=== PATIENT | male | born 1940 | race Caucasian/White ===

== ENCOUNTER 2020-11-14 12:01 | Observation (INO) | payer MEDICARE, SELFPAY ==
[2020-11-14] VITALS (28 sets, daily range): BP systolic 114–154; BP diastolic 67–97; PULSE 68–128; RESP 14–31; TEMP 36.3–36.4; O2SAT 95–99; BMI 21.7
--- NOTE | 2020-11-14 12:26 | DI.CT.S_ITS ---
PROCEDURE: CT STROKE INDICATIONS: left eye visual disturbance x 48 hours, now L UE weak TECHNIQUE: Noncontrast 4.5 mm thick angled axial sections acquired from the foramen magnum to the vertex, with coronal reformats. For radiation dose reduction, the following was used: automated exposure control, adjustment of mA and/or kV according to patient size. COMPARISON: None. FINDINGS: Image quality: Excellent. CSF spaces: Basal cisterns are patent. No extra-axial fluid collections. Ventricles are normal in size and shape. Brain: No midline shift. No intracranial masses or hemorrhage. Small area of hypodensity in the posterior right frontal lobe, (4/18). Skull and face: Calvarium and visualized facial bones are intact, without suspicious lesions. Sinuses: Mild mucosal thickening in the bilateral maxillary sinuses. Mild mucosal thickening in the left ethmoid air cell. Mastoids are clear. IMPRESSION: 1. No acute intracranial hemorrhage. 2. Small area of hypodensity in the posterior right frontal lobe. This is suspicious for subacute infarct. Comment: Findings were discussed with Carmella Villa at 1255 p.m. This study fulfills neurological imaging criteria for inclusion or exclusion of acute stroke therapies based on available published neurological imaging guidelines. Dictated by: Joni Gutierrez M.D. on 11/14/2020 at 12:51 Approved by: Joni Gutierrez M.D. on 11/14/2020 at 12:57
--- NOTE | 2020-11-14 12:29 | ED_ITS ---
HPI - Neuro Symptoms/Deficit General Chief Complaint: Neuro Symptoms/Deficit Stated Complaint: stroke, sent by Eye dr Time Seen by Provider: 11/14/20 12:29 Source: patient and other (Dr. García) Mode of arrival: Ambulatory Limitations: no limitations History of Present Illness HPI Narrative: 80-year-old male who states he lost vision in the upper quadrant of his left eye on the 12 of November, 2 days prior. Since then he has not had any additional symptoms until about an hour ago he had weakness of his left upper e xtremity that lasted for about 10 or 15 minutes and then resolved. Patient states he just can not lift it or move it properly. He denies any other symptoms. He has had headaches for several days but not currently. No nausea or vomiting. No other numbness tingling or weakness besides today's event. No other GI or urinary symptoms. Patient takes a Tylenol daily, blood pressure and cholesterol medication. He does not take any other blood thinners regularly. He lives in [facility]. On Anticoagulants: No Related Data Home Medications Medication Instructions Recorded Confirmed amlodipine 10 mg tablet 10 mg PO BEDTIME 11/14/20 11/14/20 Previous Rx's Medication Instructions Recorded aspirin 81 mg tablet,delayed 81 mg PO DAILY #30 tab 11/15/20 release atorvastatin 20 mg tablet (Lipitor) 80 mg PO BEDTIME #120 tab 11/15/20 clopidogrel 75 mg tablet 75 mg PO DAILY #30 tab 11/15/20 Allergies Allergy/AdvReac Type Severity Reaction Status Date / Time No Known Drug Allergies Allergy Verified 11/14/20 12:21 Review of Systems Review of Systems ROS Unobtainable: All systems reviewed & are unremarkable except as noted in HPI and below Hematologic/Lymphatic On Anticoagulants: No Patient History Medical History High cholesterol Hypertension Family History Sister CVA (cerebral vascular accident) Social History household members: spouse Smoking Status: Never smoker alcohol intake: never Smoking Status: Never smoker alcohol intake frequency: 0-2 drinks per day Substance Use Type: does not use Exam Narrative Exam Narrative: GEN: well nourished, well appearing male, alert and oriented x 3, patient appears to be in mild distress. HEENT: Atraumatic, pupils are equal round reactive to light, extraocular movements are intact, nares are clear, TMs are clear with no fluid, there is no conjunctival pallor. Throat is clear without any exudates, erythema, tonsillar enlargement or uvular deviation, no facial droop. HEART: Regular rate and rhythm without murmur, clicks, rubs. No carotid bruits, pulses are equal in upper and lower extremities LUNGS:Lungs clear to auscultation, no wheezes, rales, crackles, chest moves symmetrically ABD:bowel sounds normal, soft, non-tender, no guarding, rebound, rigidity, no masses noted, no hepatosplenomegaly :No CVA tenderness MSCL: Non-tender, no muscle atrophy, muscles strength 5/5 upper and lower extremities, full range of motion, normal gait NEURO:CN 2-12 intact, sensation normal, reflexes 2/4 upper and lower extremities. finger nose finger test normal, heel galeana test normal SKIN: No rash or skin changes. Initial Vital Signs Initial Vital Signs: Vital Signs Temperature 97.6 F 11/14/20 12:17 Pulse Rate 94 H 11/14/20 12:17 Respiratory Rate 18 11/14/20 12:17 Blood Pressure 153/85 H 11/14/20 12:17 Pulse Oximetry 99 11/14/20 12:17 Scores NIH Stroke Scale Level of Conciousness: Alert, keenly responsive Ask month/age: Answers both questions correctly. Open/close eyes, close hand: Performs both tasks correctly Best gaze horizontal: Normal Visual quinonez: Partial hemianopia Facial palsy: Normal symetrical movement Left arm drift: No drift for full 10 sec Right arm drift: No drift for full 10 sec Left leg drift: No drift for full 5 sec Right leg drift: No drift for full 5 sec Limb ataxia: Absent Sensory on face/arms/legs: Normal, no sensory loss Best language: No aphasia, normal Dysarthria: Normal Extinction or inattention: No abnormality Total NIH Stroke scale score: 1 Course Orders Ordered: Discontinued Medications Acetaminophen (Acetaminophen 325 Mg Tablet) 650 mg PO Q6HR PRN PRN Reason: Fever/Mild Pain (1-3) Amlodipine Besylate (Amlodipine 5 Mg Tablet) 10 mg PO BEDTIME TRUDY Aspirin (Aspirin 81 Mg Chew Tab) 324 mg PO NOW ONE Stop: 11/14/20 13:07 Last Admin: 11/14/20 13:21 Dose: 324 mg Documented by: SAMANTHA Aspirin (Aspirin Ec 81 Mg Tablet) 81 mg PO DAILY [facility] Last Admin: 11/15/20 09:10 Dose: 81 mg Documented by: DEMETRIUS Atorvastatin Calcium (Atorvastatin 20 Mg Tablet) 80 mg PO BEDTIME [facility] Last Admin: 11/14/20 20:26 Dose: 80 mg Documented by: GRANT Clopidogrel Bisulfate (Clopidogrel 75 Mg Tablet) 75 mg PO DAILY [facility] Last Admin: 11/15/20 09:10 Dose: 75 mg Documented by: DEMETRIUS Enoxaparin Sodium (Enoxaparin 40 Mg/0.4 Ml Syringe) 40 mg SUBCUT DAILY [facility] Last Admin: 11/15/20 09:10 Dose: 40 mg Documented by: DEMETRIUS Sodium Chloride (Normal Saline 0.9%) 1,000 mls @ 150 mls/hr IV CONT [facility] Last Infusion: 11/14/20 17:12 Dose: 0 mls/hr Documented by: Admin: 11/14/20 13:21 Dose: 150 mls/hr Documented by: SAMANTHA Naloxone HCl (Naloxone 0.4 Mg/Ml Vial) 0.2 mg IV Q2MIN PRN PRN Reason: Opiate Reversal Ondansetron HCl (Ondansetron 4 Mg/2 Ml Inj) 4 mg IV Q8HR PRN PRN Reason: Nausea And Vomiting Consultations Consultation #1: Telestroke, Dr. Dorsey. Recommends dual anti-platelet therapy with aspirin 81 mg a Plavix 150. Admission and further workup as his carotids do not seem to be a likely source of his stroke. Not candidate for tpa based on resolution of upper extremity symptoms and patient is far outside the window for his visual symptoms Consultation #2: Dr. Jackson, accepts for admission. Going for MRI. Vital Signs Vital signs: Vital Signs - 8 hr 11/14/20 12:17 11/14/20 13:17 11/14/20 13:30 Temperature 97.6 F Pulse Rate 94 H 85 82 Respiratory Rate 18 18 17 Blood Pressure 153/85 H 154/77 H Pulse Oximetry 99 97 11/14/20 13:45 11/14/20 14:00 11/14/20 14:01 Temperature Pulse Rate 80 107 H 92 H Respiratory Rate 14 31 H 27 H Blood Pressure 114/67 Pulse Oximetry 11/14/20 14:15 Temperature Pulse Rate 82 Respiratory Rate 17 Blood Pressure Pulse Oximetry MDM - Neuro Symptoms/Deficit Lab Data Result diagrams: 11/15/20 04:25 11/15/20 04:25 Labs: Lab Results 11/14/20 11/14/20 11/14/20 Range/Units 12:35 12:36 12:36 WBC 9.1 (4.5-11.0) X10^3/uL RBC 4.69 (4.5-5.9) X10^6/uL Hgb 14.6 (13.5-17.5) g/dL Hct 43.2 (41-53) % MCV 92.0 (80-100) fL MCH 31.1 (26-34) PG MCHC 33.8 (30-36) % RDW 13.5 (11.6-14.8) % Plt Count 295 (150-400) X10^3/uL Neut % (Auto) 68.3 (50-75) % Lymph % (Auto) 23.0 L (25-40) % [place] % (Auto) 6.2 (3-14) % Eos % (Auto) 1.7 L (2-4) % Baso % (Auto) 0.8 (0-2) % Neut # (Auto) 6200 (8888-5060) /uL Lymph # (Auto) 2100 (1725-2067) /uL [place] # (Auto) 600 (0-900) /uL Eos # (Auto) 200 (0-450) /uL Baso # (Auto) 100 (0-100) /uL ESR (0-15) MM/HR PT 11.9 (10.1-12.7) SECONDS INR 1.1 (0.9-1.3) APTT 34 (26.4-36.2) SECONDS Sodium (137-145) mmol/L Potassium (3.4-5.1) mmol/L Chloride (98-107) mmol/L Carbon Dioxide (22-32) mmol/L BUN (9-20) mg/dL Creatinine (0.66-1.25) mg/dL Estimated GFR (>60) mL/min BUN/Creatinine Ratio (6-22) Glucose (80-110) mg/dL Hemoglobin A1c (4.0-6.0) % Calcium (8.4-10.2) mg/dL Magnesium 2.1 (1.6-2.3) mg/dL Total Bilirubin (0.2-1.3) mg/dL AST (17-59) IU/L ALT (<50) IU/L Alkaline Phosphatase (38-126) U/L Total Creatine Kinase (55-170) U/L CK-MB (CK-2) CK-MB (CK-2) Rel Index Troponin I (0.01-0.034) ng/mL C-Reactive Protein (<1.0) mg/dL Total Protein (6.3-8.2) g/dL Albumin (3.5-5.0) g/dL Globulin (1.7-4.1) g/dL Albumin/Globulin Ratio (1.0-2.8) U Opiates 300ng/mL cut (Negative) Ur Oxycodone Screen (Negative) Urine Methadone Screen (Negative) Ur Barbiturates Screen (Negative) U Tricyclic Antidepress (Negative) Ur Phencyclidine Scrn (Negative) Ur Amphetamines Screen (Negative) U Methamphetamines Scrn (Negative) Ur MDMA Scrn (Ecstasy) (Negative) U Benzodiazepines Scrn (Negative) Urine Cocaine Screen (Negative) U Marijuana (THC) Screen (Negative) SARS-CoV-2 (PCR) (Negative) Blood Type Antibody Screen 11/14/20 11/14/20 11/14/20 Range/Units 12:36 12:36 12:36 WBC (4.5-11.0) X10^3/uL RBC (4.5-5.9) X10^6/uL Hgb (13.5-17.5) g/dL Hct (41-53) % MCV (80-100) fL MCH (26-34) PG MCHC (30-36) % RDW (11.6-14.8) % Plt Count (150-400) X10^3/uL Neut % (Auto) (50-75) % Lymph % (Auto) (25-40) % [place] % (Auto) (3-14) % Eos % (Auto) (2-4) % Baso % (Auto) (0-2) % Neut # (Auto) (8726-6417) /uL Lymph # (Auto) (0036-8932) /uL [place] # (Auto) (0-900) /uL Eos # (Auto) (0-450) /uL Baso # (Auto) (0-100) /uL ESR 10 (0-15) MM/HR PT (10.1-12.7) SECONDS INR (0.9-1.3) APTT (26.4-36.2) SECONDS Sodium 138 (137-145) mmol/L Potassium 4.1 (3.4-5.1) mmol/L Chloride 106 (98-107) mmol/L Carbon Dioxide 24 (22-32) mmol/L BUN 18 (9-20) mg/dL Creatinine 0.75 (0.66-1.25) mg/dL Estimated GFR > 60.0 (>60) mL/min BUN/Creatinine Ratio 24.0 H (6-22) Glucose 100 (80-110) mg/dL Hemoglobin A1c (4.0-6.0) % Calcium 9.7 (8.4-10.2) mg/dL Magnesium (1.6-2.3) mg/dL Total Bilirubin 0.6 (0.2-1.3) mg/dL AST 31 (17-59) IU/L ALT 23 (<50) IU/L Alkaline Phosphatase 69 (38-126) U/L Total Creatine Kinase 80 (55-170) U/L CK-MB (CK-2) TNP CK-MB (CK-2) Rel Index TNP Troponin I < 0.012 (0.01-0.034) ng/mL C-Reactive Protein (<1.0) mg/dL Total Protein 7.4 (6.3-8.2) g/dL Albumin 4.5 (3.5-5.0) g/dL Globulin 2.9 (1.7-4.1) g/dL Albumin/Globulin Ratio 1.6 (1.0-2.8) U Opiates 300ng/mL cut (Negative) Ur Oxycodone Screen (Negative) Urine Methadone Screen (Negative) Ur Barbiturates Screen (Negative) U Tricyclic Antidepress (Negative) Ur Phencyclidine Scrn (Negative) Ur Amphetamines Screen (Negative) U Methamphetamines Scrn (Negative) Ur MDMA Scrn (Ecstasy) (Negative) U Benzodiazepines Scrn (Negative) Urine Cocaine Screen (Negative) U Marijuana (THC) Screen (Negative) SARS-CoV-2 (PCR) (Negative) Blood Type A Positive Antibody Screen Negative 11/14/20 11/14/20 11/14/20 Range/Units 12:36 12:36 13:05 WBC (4.5-11.0) X10^3/uL RBC (4.5-5.9) X10^6/uL Hgb (13.5-17.5) g/dL Hct (41-53) % MCV (80-100) fL MCH (26-34) PG MCHC (30-36) % RDW (11.6-14.8) % Plt Count (150-400) X10^3/uL Neut % (Auto) (50-75) % Lymph % (Auto) (25-40) % [place] % (Auto) (3-14) % Eos % (Auto) (2-4) % Baso % (Auto) (0-2) % Neut # (Auto) (7838-1738) /uL Lymph # (Auto) (2367-2816) /uL [place] # (Auto) (0-900) /uL Eos # (Auto) (0-450) /uL Baso # (Auto) (0-100) /uL ESR (0-15) MM/HR PT (10.1-12.7) SECONDS INR (0.9-1.3) APTT (26.4-36.2) SECONDS Sodium (137-145) mmol/L Potassium (3.4-5.1) mmol/L Chloride (98-107) mmol/L Carbon Dioxide (22-32) mmol/L BUN (9-20) mg/dL Creatinine (0.66-1.25) mg/dL Estimated GFR (>60) mL/min BUN/Creatinine Ratio (6-22) Glucose (80-110) mg/dL Hemoglobin A1c 5.8 (4.0-6.0) % Calcium (8.4-10.2) mg/dL Magnesium (1.6-2.3) mg/dL Total Bilirubin (0.2-1.3) mg/dL AST (17-59) IU/L ALT (<50) IU/L Alkaline Phosphatase (38-126) U/L Total Creatine Kinase (55-170) U/L CK-MB (CK-2) CK-MB (CK-2) Rel Index Troponin I (0.01-0.034) ng/mL C-Reactive Protein 0.6 (<1.0) mg/dL Total Protein (6.3-8.2) g/dL Albumin (3.5-5.0) g/dL Globulin (1.7-4.1) g/dL Albumin/Globulin Ratio (1.0-2.8) U Opiates 300ng/mL cut Negative (Negative) Ur Oxycodone Screen Negative (Negative) Urine Methadone Screen Negative (Negative) Ur Barbiturates Screen Negative (Negative) U Tricyclic Antidepress Negative (Negative) Ur Phencyclidine Scrn Negative (Negative) Ur Amphetamines Screen Negative (Negative) U Methamphetamines Scrn Negative (Negative) Ur MDMA Scrn (Ecstasy) Negative (Negative) U Benzodiazepines Scrn Negative (Negative) Urine Cocaine Screen Negative (Negative) U Marijuana (THC) Screen Negative (Negative) SARS-CoV-2 (PCR) (Negative) Blood Type Antibody Screen 11/14/20 Range/Units 13:30 WBC (4.5-11.0) X10^3/uL RBC (4.5-5.9) X10^6/uL Hgb (13.5-17.5) g/dL Hct (41-53) % MCV (80-100) fL MCH (26-34) PG MCHC (30-36) % RDW (11.6-14.8) % Plt Count (150-400) X10^3/uL Neut % (Auto) (50-75) % Lymph % (Auto) (25-40) % [place] % (Auto) (3-14) % Eos % (Auto) (2-4) % Baso % (Auto) (0-2) % Neut # (Auto) (4117-3832) /uL Lymph # (Auto) (6208-3595) /uL [place] # (Auto) (0-900) /uL Eos # (Auto) (0-450) /uL Baso # (Auto) (0-100) /uL ESR (0-15) MM/HR PT (10.1-12.7) SECONDS INR (0.9-1.3) APTT (26.4-36.2) SECONDS Sodium (137-145) mmol/L Potassium (3.4-5.1) mmol/L Chloride (98-107) mmol/L Carbon Dioxide (22-32) mmol/L BUN (9-20) mg/dL Creatinine (0.66-1.25) mg/dL Estimated GFR (>60) mL/min BUN/Creatinine Ratio (6-22) Glucose (80-110) mg/dL Hemoglobin A1c (4.0-6.0) % Calcium (8.4-10.2) mg/dL Magnesium (1.6-2.3) mg/dL Total Bilirubin (0.2-1.3) mg/dL AST (17-59) IU/L ALT (<50) IU/L Alkaline Phosphatase (38-126) U/L Total Creatine Kinase (55-170) U/L CK-MB (CK-2) CK-MB (CK-2) Rel Index Troponin I (0.01-0.034) ng/mL C-Reactive Protein (<1.0) mg/dL Total Protein (6.3-8.2) g/dL Albumin (3.5-5.0) g/dL Globulin (1.7-4.1) g/dL Albumin/Globulin Ratio (1.0-2.8) U Opiates 300ng/mL cut (Negative) Ur Oxycodone Screen (Negative) Urine Methadone Screen (Negative) Ur Barbiturates Screen (Negative) U Tricyclic Antidepress (Negative) Ur Phencyclidine Scrn (Negative) Ur Amphetamines Screen (Negative) U Methamphetamines Scrn (Negative) Ur MDMA Scrn (Ecstasy) (Negative) U Benzodiazepines Scrn (Negative) Urine Cocaine Screen (Negative) U Marijuana (THC) Screen (Negative) SARS-CoV-2 (PCR) Negative (Negative) Blood Type Antibody Screen Urine Dip Bedside Urine Glucose Negative Bedside Urine Bilirubin - Negative Bedside Urine Ketone - Negative Urine Specific [place] 1.015 Bedside Urine Occult Blood - Negative Bedside Urine pH 6 Bedside Urine Protein - Negative Bedside Urine Urobilinogen - Negative Bedside Urine Nitrite - Negative Bedside Urine Leukocytes - Negative Esterase Imaging Data CTA - brain/neck: Radiologist's Impression: [address] [id number] Scan ReportSigned Patient: Piyush Glasgow RMR#: [id number]: 3Acct:[id number]/Sex: 80 / MDate of Service: 11/14/20Loc: EDAccession Number: [id number] Procedure: CT angio head and neck Ordering Provider: Carmella Villa D.O. PROCEDURE: CT ANGIO HEAD AND NECK INDICATIONS: left eye visual dis/ left arm weak TECHNIQUE: Pre-contrast 4.5 mm thick sections acquired from the foramen magnum to the vertex. After the administration of intravenous contrast, 1 mm thick sections acquired from the aortic arch through the [place]. Post-contrast 4.5 mm thick sections then re- acquired from the foramen magnum to the vertex. 3-dimensional iotnozi-nyjpoovhu-tyinasibgl (MIP) and/or volume rendering reformats were acquired of the central intracranial vasculature and neck separately. COMPARISON: None. FINDINGS: Image quality: Excellent. BRAIN: CSF spaces: Ventricles are normal in size and shape. Basal cisterns are patent. No extra-axial fluid collections. Brain: No midline shift. No intracranial bleeds or masses. Jay-white matter interface appears intact. Skull and face: Calvarium and facial bones appear intact, without suspicious lesions. Orbits appear normal. Sinuses: Sinuses and mastoids are clear. HEAD CT ANGIOGRAPHY: Anterior circulation: Intracranial internal carotid arteries have scattered atherosclerotic calcifications but are normal in size and flow. The flow within the paired anterior cerebral arteries is normal and symmetric. The flow within the middle cerebral arteries is normal and symmetric. The anterior communicating artery is seen. No aneurysms are seen. Posterior circulation: Visualized portions of the vertebral arteries demonstrate normal caliber, and join to form a normal appearing basilar artery. Flow within the posterior cerebral arteries is normal and symmetric. No aneurysms are seen. NECK CT ANGIOGRAPHY: Carotid system: The great vessels demonstrate a conventional anatomy as they arise from the aortic arch. The origins of the common carotid arteries appear patent. The common carotid arteries demonstrate normal caliber and courses. The bifurcation regions demonstrates severe atherosclerotic calcifications bilaterally. On the left there is a 40 percent stenosis at the bulb. On the right there is a 46 percent stenosis at the bulb. The internal carotid arteries demonstrate normal calibers and courses. Posterior circulation: The origins of the vertebral arteries both appear widely patent. The more superior extracranial portions of both vertebral arteries also demonstrate normal courses and calibers. They join to form a normal appearing basilar artery. Soft tissues: The left thyroid gland has a 1.7 x 1.3 centimeter hypodensity. Recommend thyroid ultrasound. Bones: No suspicious bony lesions. Visualized cervical spine appears normally aligned. 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 IMPRESSION: 1. Atherosclerotic calcifications of the carotid bulbs bilaterally causing 40 percent stenosis on the left and 46 percent stenosis on the right. 2. 1.3 x 1.7 centimeter left thyroid gland hypodense nodule. Recommend thyroid ultrasound. Any quantitative measurements of stenosis were performed using NASCET criteria. Dictated by: Matthias Wright M.D. on 11/14/2020 at 12:58 Approved by: Matthias Wright M.D. on 11/14/2020 at 13:08 CT scan - head: Radiologist's Impression: [address] [id number] Scan ReportSigned Patient: Piyush Glasgow R#: [id number]: 1942cct:[id number]/Sex: 80 / MDate of Service: 11/14/20Loc: EDAccession Number: [id number] Procedure: CT Stroke Ordering Provider: Carmella Villa D.O. PROCEDURE: CT STROKE INDICATIONS: left eye visual disturbance x 48 hours, now L UE weak TECHNIQUE: Noncontrast 4.5 mm thick angled axial sections acquired from the foramen magnum to the vertex, with coronal reformats. For radiation dose reduction, the following was used: automated exposure control, adjustment of mA and/or kV according to patient size. COMPARISON: None. FINDINGS: Image quality: Excellent. CSF spaces: Basal cisterns are patent. No extra-axial fluid collections. Ventricles are normal in size and shape. Brain: No midline shift. No intracranial masses or hemorrhage. Small area of hypodensity in the posterior right frontal lobe, (4/18). Skull and face: Calvarium and visualized facial bones are intact, without suspicious lesions. Sinuses: Mild mucosal thickening in the bilateral maxillary sinuses. Mild mucosal thickening in the left ethmoid air cell. Mastoids are clear. IMPRESSION: 1. No acute intracranial hemorrhage. 2. Small area of hypodensity in the posterior right frontal lobe. This is suspicious for subacute infarct. Comment: Findings were discussed with Carmella Villa at 1255 p.m. This study fulfills neurological imaging criteria for inclusion or exclusion of acute stroke therapies based on available published neurological imaging guidelines. Dictated by: Joni Gutierrez M.D. on 11/14/2020 at 12:51 Approved by: Joni Gutierrez M.D. on 11/14/2020 at 12:57 MRI stroke protocal: Radiologist's Impression: [address] [id number] Resonance ReportSigned Patient: Piyush Glasgow RMR#: [id number]: 3Acct:[id number]/Sex: 80 / MDate of Service: 11/14/20Lo: [id number] Number: [id number] Procedure: MR stroke Ordering Provider: Carmella Villa D.O. PROCEDURE: MR STROKE Pre- and post-contrast brain MRI, non-contrast brain MR angiogram, pre- and postcontrast neck MR angiogram INDICATIONS: stroke TECHNIQUE: Brain: Noncontrast axial T1 spin echo, axial T2 fast spin echo, sagittal and axial FLAIR, coronal T2 fast spin echo, axial gradient echo, axial diffusion and ADC through the brain. After the administration of contrast, axial 3D VIBE of the cranial vasculature and brain. Brain MRA: Non-contrast 3-D time of flight MR angiogram, with multiple juyrawq-tmvvqyopd-zgoctaudxf (MIP) reformats performed. Neck MRA: Axial and sagittal TruFISP through the neck. Coronal dynamic MR angiogram during administration of contrast in the arterial and venous phases, with 3- dimenstional momppib-cskscijry-iafzqfhgjd (MIP) reformats constructed from subtraction imag es. COMPARISON: [facility], CT, CT ANGIO HEAD AND NECK, 11/14/2020, 12:35. [facility], CT, CT STROKE, 11/14/2020, 12:35. FINDINGS: Image quality: Excellent. BRAIN: CSF spaces: Ventricles are normal in size and shape. Basal cisterns are patent. No extra-axial fluid collections. Brain: No intracranial bleeds or mass effects. Jay-white matter interface is normal. Diffusion weighted images show no acute ischemic insults. Brainstem appears normal. Normal intravascular flow voids are present. No abnormal intracranial enhancement. Note is made of age-appropriate brain parenchymal volume loss and chronic small vessel ischemic changes. Skull and face: Calvarial marrow signal is normal. Orbits appear normal. Note is made of bilateral lens replacements. Sinuses: Sinuses and mastoids are clear. BRAIN MR ANGIOGRAM: Anterior circulation: Intracranial internal carotid arteries are normal in size and enhancement. The flow within the paired anterior cerebral arteries is normal and symmetric. The flow within the middle cerebral arteries is normal and symmetr ic. The anterior communicating artery is not well seen. No stenoses, occlusions, or aneurysms. Posterior circulation: The visualized portions of the vertebral arteries demonstrate normal caliber, and join to form a normal appearing basilar artery. The flow within the posterior cerebral arteries is normal and symmetric. No stenoses, occlusions, or aneurysms. NECK MR ANGIOGRAM: Carotids: Great vessels demonstrate a conventional anatomy as they arise from the aortic arch. The origins of the common carotid arteries appear patent. The calibers and courses of both common carotid arteries are normal. The bifurcation regions straight atherosclerotic irregularity. Approximately 70% stenosis is seen involving the right proximal internal carotid artery and there is approximately 50% stenosis seen involving the left proximal internal carotid artery. Posterior circulation: The origins of the vertebral arteries appear patent. More superior portions of both vertebral arteries demonstrate normal course and caliber, and join to form a normal appearing basilar artery. Miscellaneous: Subclavian arteries appear patent. Pre-contrast images through the neck show no soft tissue abnormalities. IMPRESSION: BRAIN MRI: No findings of acute or subacute infarction can be seen. Note is made of age-appropriate brain parenchymal volume loss and chronic small vessel ischemic changes. No masses or abnormal enhancement can be seen. BRAIN MR ANGIOGRAM: No significant intracranial arterial abnormality is seen. NECK MR ANGIOGRAM: Approximately 70% stenosis involving the right proximal internal carotid artery. Approximately 70% stenosis involving the left proximal internal carotid artery. Dictated by: Cassius Hu M.D. on 11/14/2020 at 14:44 Approved by: Cassius Hu M.D. on 11/14/2020 at 14:48 ECG Data Interpretation: Sinus rhythm occasional PVC. Rate 85 NH 160 QRS 86 and QTC of 437. MDM Narrative Medical decision making narrative: This is a 80-year-old male comes emergency department for stroke sent by Ophthalmology. Patient's eye exam is concerning for stroke. Patient's symptoms were 2 days prior and he has not had any change or improvement. Patient is far outside the tPA window. While he was waiting to be seen emergency department he said he had about 15 minutes of left upper ex tremity weakness or he could not use it properly which has since resolved. Patient's NIH is or 1 at this time secondary to his visual changes. Patient had CT and angiography less than 50% stenosis bilaterally in the carotid bulbs as well as a left thyroid gland nodule which was shared with the patient family. Patient case was discussed with tele stroke and they recommend dual anti- platelet. Patient was accepted by the hospitalist. Stroke Core Measures Exclusion Criteria TPA in CVA: Symptom Onset >3 or 4.5 Hours Discharge Plan Departure Patient Disposition: Admitted As Inpatient Clinical Impression: CVA (cerebral vascular accident) Admit Date/Time: 11/14/20 14:17 Admit Provider: Bud Nazario
[2020-11-14 12:48] LABS: Add Manual Diff / Slide Review NO; Basophils Absolute Auto 100 /uL (0-100); Basophils Percent Auto 0.8 % (0-2); Eosinophils Absolute Auto 200 /uL (0-450); Eosinophils Percent Auto 1.7 % (2-4); Hematocrit 43.2 % (41-53); Hemoglobin 14.6 g/dL (13.5-17.5); Lymphocytes Absolute Auto 2100 /uL (1100-4500); Mean Corpuscular HGB Conc 33.8 % (30-36); Mean Corpuscular Hemoglobin 31.1 PG (26-34); Monocytes Absolute Auto 600 /uL (0-900); Monocytes Percent Auto 6.2 % (3-14); Neutrophils Absolute Auto 6200 /uL (1500-7000); Neutrophils Percent Auto 68.3 % (50-75); Platelet Count 295 X10^3/uL (150-400); Red Blood Cell Count 4.69 X10^6/uL (4.5-5.9); Red Cell Distribution Width 13.5 % (11.6-14.8); White Blood Cell Count 9.1 X10^3/uL (4.5-11.0)
[2020-11-14 12:55] LABS: INR 1.1 (0.9-1.3); Prothrombin Time 11.9 SECONDS (10.1-12.7)
[2020-11-14 12:57] LABS: PTT Partial Thromboplastin Tim 34 SECONDS (26.4-36.2)
[2020-11-14 12:58] LABS: Chloride 106 mmol/L (98-107); HEMOLYSIS < 15 (0-50)
[2020-11-14 13:01] LABS: Alanine Aminotransferase 23 IU/L (<50); Albumin 4.5 g/dL (3.5-5.0); Albumin Globulin Ratio 1.6 (1.0-2.8); Alkaline Phosphatase 69 U/L (38-126); Aspartate Aminotransferase 31 IU/L (17-59); Bilirubin Total 0.6 mg/dL (0.2-1.3); Blood Urea Nitrogen 18 mg/dL (9-20); Calcium 9.7 mg/dL (8.4-10.2); Carbon Dioxide 24 mmol/L (22-32); Creatine Kinase 80 U/L (55-170); Estimated Glomerular Filt Rate > 60.0 mL/min (>60); Globulin 2.9 g/dL (1.7-4.1); Glucose 100 mg/dL (80-110); Potassium 4.1 mmol/L (3.4-5.1); Sodium 138 mmol/L (137-145); Total Protein 7.4 g/dL (6.3-8.2)
[2020-11-14 13:04] LABS: C-Reactive Protein Quant 0.6 mg/dL (<1.0)
[2020-11-14 13:07] LABS: Erythrocyte Sedimentation Rate 10 MM/HR (0-15)
[2020-11-14 13:12] LABS: Troponin I < 0.012 ng/mL (0.01-0.034)
[2020-11-14] MEDS: ASPIRIN 81 MG CHEW TAB 324 MG PO (13:21)
[2020-11-14] MEDS: SODIUM CHLORIDE 0.9% 1,000 ML 150 ML IV (13:21)
[2020-11-14 13:30] LABS: UR Morphine/Opiate cutoff 300 Negative (Negative); Ur Creatinine Normal (Normal); Ur Specific Gravity Normal (Normal); Urine Amphetamines Negative (Negative); Urine Barbiturates Negative (Negative); Urine Benzodiazepines Negative (Negative); Urine Cocaine Negative (Negative); Urine MDMA Negative (Negative); Urine Methamphetamines Negative (Negative); Urine Phencyclidine Negative (Negative); Urine Tetrahydrocannabinol Negative (Negative); Urine pH Normal (Normal)
[2020-11-14 13:31] LABS: Urine Methadone Negative (Negative); Urine Oxycodone Negative (Negative); Urine Tricyclic Antidepressant Negative (Negative)
--- NOTE | 2020-11-14 13:47 | DI.MRI.S_ITS ---
PROCEDURE: MR STROKE Pre- and post-contrast brain MRI, non-contrast brain MR angiogram, pre- and postcontrast neck MR angiogram INDICATIONS: stroke TECHNIQUE: Brain: Noncontrast axial T1 spin echo, axial T2 fast spin echo, sagittal and axial FLAIR, coronal T2 fast spin echo, axial gradient echo, axial diffusion and ADC through the brain. After the administration of contrast, axial 3D VIBE of the cranial vasculature and brain. Brain MRA: Non-contrast 3-D time of flight MR angiogram, with multiple njbcpjt-rttiegpyu-noyzxwxtdc (MIP) reformats performed. Neck MRA: Axial and sagittal TruFISP through the neck. Coronal dynamic MR angiogram during administration of contrast in the arterial and venous phases, with 3-dimenstional yfqhyqh-qmakmyohg-llxyrzvfgh (MIP) reformats constructed from subtraction images. COMPARISON: [facility], CT, CT ANGIO HEAD AND NECK, 11/14/2020, 12:35. [facility], CT, CT STROKE, 11/14/2020, 12:35. FINDINGS: Image quality: Excellent. BRAIN: CSF spaces: Ventricles are normal in size and shape. Basal cisterns are patent. No extra-axial fluid collections. Brain: No intracranial bleeds or mass effects. Jay-white matter interface is normal. Diffusion weighted images show no acute ischemic insults. Brainstem appears normal. Normal intravascular flow voids are present. No abnormal intracranial enhancement. Note is made of age-appropriate brain parenchymal volume loss and chronic small vessel ischemic changes. Skull and face: Calvarial marrow signal is normal. Orbits appear normal. Note is made of bilateral lens replacements. Sinuses: Sinuses and mastoids are clear. BRAIN MR ANGIOGRAM: Anterior circulation: Intracranial internal carotid arteries are normal in size and enhancement. The flow within the paired anterior cerebral arteries is normal and symmetric. The flow within the middle cerebral arteries is normal and symmetric. The anterior communicating artery is not well seen. No stenoses, occlusions, or aneurysms. Posterior circulation: The visualized portions of the vertebral arteries demonstrate normal caliber, and join to form a normal appearing basilar artery. The flow within the posterior cerebral arteries is normal and symmetric. No stenoses, occlusions, or aneurysms. NECK MR ANGIOGRAM: Carotids: Great vessels demonstrate a conventional anatomy as they arise from the aortic arch. The origins of the common carotid arteries appear patent. The calibers and courses of both common carotid arteries are normal. The bifurcation regions straight atherosclerotic irregularity. Approximately 70% stenosis is seen involving the right proximal internal carotid artery and there is approximately 50% stenosis seen involving the left proximal internal carotid artery. Posterior circulation: The origins of the vertebral arteries appear patent. More superior portions of both vertebral arteries demonstrate normal course and caliber, and join to form a normal appearing basilar artery. Miscellaneous: Subclavian arteries appear patent. Pre-contrast images through the neck show no soft tissue abnormalities. IMPRESSION: BRAIN MRI: No findings of acute or subacute infarction can be seen. Note is made of age-appropriate brain parenchymal volume loss and chronic small vessel ischemic changes. No masses or abnormal enhancement can be seen. BRAIN MR ANGIOGRAM: No significant intracranial arterial abnormality is seen. NECK MR ANGIOGRAM: Approximately 70% stenosis involving the right proximal internal carotid artery. Approximately 70% stenosis involving the left proximal internal carotid artery. Dictated by: Cassius Hu M.D. on 11/14/2020 at 14:44 Approved by: Cassius Hu M.D. on 11/14/2020 at 14:48
[2020-11-14 14:45] LABS: COVID19 - ADMIT (NP swab/PCR) Negative (Negative)
--- NOTE | 2020-11-14 17:05 | DI.ECHO.S_ITS ---
[place] +---------+ [facility] +---------+ : : [address] : [address] [address] : : : : [id number] : : : : Phone: [phone]+ Echocardiogram Report + + :Name: RADHA CARRILLO Study Date: 11/15/2020 Height: 76 in : :[facility] ReadingLocation: Weight: 178 lb : : Gender: Male BSA: 2.1 m2 : :: 1940 Age: 80 yrs BP: 138/86 mmHg: :Reason For Study: CVA : :Ordering Physician: ADAM, : :YEN Performed By: Lizeth Craig : :Referring: YEN MEDINA : + + Interpretation Summary The left ventricular cavity is small. Left ventricular systolic function is low normal. The ejection fraction is estimated to be 50-55%. There are no obvious focal wall motion abnormalities noted but poor endocardial definition reduces the sensitivity for the detection of such. Diastolic parameters suggest a relaxation abnormality of the left ventricle, consistent with probable normal filling pressures. The right ventricle is normal in size and function. The right ventricular systolic pressure is estimated to be at least 25 mmHg based on an estimated right atrial pressure of 3 mm Hg. The left atrium is mildly dilated. Right atrial size is normal. No obvious atrial septal defected noted on limited views. There is mild mitral regurgitation. There is moderate mitral annular calcification. There is no other significant valvular heart disease. The ascending aorta is mildly enlarged. Procedure: A two-dimensional transthoracic echocardiogram with color flow and Doppler was performed. The study quality was technically adequate. There is no prior echocardiogram noted for this patient. The patient was in sinus rhythm with heart rates between 75-90 bpm during the exam. Left Ventricle: The left ventricular cavity is small. There is mild concentric left ventricular hypertrophy. Left ventricular systolic function is low normal. The ejection fraction is estimated to be 50-55%. There are no obvious focal wall motion abnormalities noted but poor endocardial definition reduces the sensitivity for the detection of such. Diastolic parameters suggest a relaxation abnormality of the left ventricle, consistent with probable normal filling pressures. Right Ventricle: The right ventricle is normal in size and function. Atria: The left atrium is mildly dilated. Right atrial size is normal. There is no Doppler evidence for an interatrial shunt. Mitral Valve: There is moderate mitral annular calcification. The mitral valve leaflets appear mildly thickened, but open well. There is mild mitral regurgitation. Aortic Valve: The aortic valve is trileaflet. The aortic valve is slightly calcified. There is no aortic valve stenosis. No aortic regurgitation is present. Tricuspid Valve: The tricuspid valve is normal in structure and function. There is mild tricuspid regurgitation. The right ventricular systolic pressure is estimated to be at least 25 mmHg based on an estimated right atrial pressure of 3 mm Hg. Pulmonic Valve: The pulmonic valve is not well seen, but is grossly normal. There is no pulmonic valvular regurgitation. There is no other significant valvular heart disease. Great Vessels: The aortic root is normal size. The ascending aorta is mildly enlarged. The IVC is of normal diameter and collapses greater than 50% with a sniff. This suggests a low right atrial pressure of 3 mm Hg. Pericardium/ Pleura There is no pericardial effusion. There is no pleural effusion. MMode/2D Measurements & Calculations LVIDd: 3.8 cm LVOT diam: 2.4 cm LVIDs: 2.7 cm Ao root diam: 3.7 cm FS: 27.7 % asc Aorta Diam: 3.8 cm IVSd: 1.3 cm Ao Arch Diam (Prox Trans): 3.7 cm LVPWd: 1.0 cm LV belle. diameter/BSA (cm/m^2): 1.8 LV sys. diameter/BSA (cm/m^2): 1.3 LA A2 area: 23.7 cm2 RA long axis: 6.2 cm LA A4 area: 22.0 cm2 RA area: 21.2 cm2 LA length (vol): 5.8 cm RA vol: 61.9 ml LA vol: 76.2 ml RA : 29.4 ml/m2 LA vol index: 36.1 ml/m2 IVC diam: 1.3 cm RVD1 (basal): 3.8 cm TAPSE: 1.9 cm Doppler Measurements & Calculations Ao V2 max: 110.3 cm/sec LVOT Max Bridger: 76.5 cm/sec Ao V2 mean: 77.6 cm/sec LV V1 max P.3 mmHg Ao max P.9 mmHg LV V1 VTI: 17.9 cm Ao mean P.7 mmHg YANELIS(I,D): 3.8 cm2 Ao V2 VTI: 21.6 cm YANELIS(V,D): 3.2 cm2 sev ratio: 0.83 YANELIS indexed to BSA (cm^2/m^2): 1.8 MV E max bridger: 70.1 cm/sec TR max bridger: 234.2 cm/sec MV A max bridger: 125.5 cm/sec TR max P.9 mmHg MV E/A: 0.56 PA V2 max: 84.2 cm/sec Med Peak E' Bridger: 3.6 cm/sec PA V2 mean: 64.9 cm/sec E/E' med: 19.4 PA mean P.8 mmHg Lat Peak E' Bridger: 10.0 cm/sec PA pr(Accel): 48.2 mmHg E/E' lat: 7.0 E/e' average: 13.2 MV dec time: 0.22 sec SV(LVOT): 81.7 ml Reading Physician:02:26 PM
--- NOTE | 2020-11-14 18:41 | P.HP_ITS ---
History of Present Illness History of Present Illness Chief complaint: stroke, sent by Eye Narrative: 80M with PMH HTN, HL who presents with left eye vision loss. He notes that he lost his vision in his left eye on the upper medial portion of his visual field. He had no further symptoms. He went to his opthalmologist where he was diagnosed with retinal artery occlusion. He was then sent to the hospital. While in the waiting room he noted left upper extremity weakness that lasted 10-15 minutes, but then resolved. He had not been able to lift his arm properly. He had no further symptoms. No other weakness, no loss of sensation. No speech or swallowing difficulty. In the ED, he was noted to have elevated blood pressure, but otherwise normal vital signs. Labs had essentially unremarkable CBC, chemistries, urine drug screen. He had a CT head which noted a small area of hypodensity in the right frontal lobe. CTA noted 40% left carotid stenosis, and 46% right carotid stenosis. He was noted to have a thyroid nodule. MRI showed no evidence of stroke, the area of question on the CT head was not visualized. He was given aspirin and admitted for further treatment. Patient History Medical History High cholesterol Hypertension Family & Social History Family History Sister CVA (cerebral vascular accident) Safety & Behavioral: Feels Safe in Current Yes Environment Been Physically Hurt or No Threatened By a Person Tobacco & Substance use: Smoking Status Never smoker alcohol intake frequency 0-2 drinks per day Substance Use Type does not use Meds Home Medications and Allergies Home Medications Medication Instructions Recorded Confirmed Type amlodipine 10 mg tablet 10 mg PO BEDTIME 11/14/20 11/14/20 History rosuvastatin 10 mg tablet 10 mg PO BEDTIME 11/14/20 11/14/20 History Allergies Allergy/AdvReac Type Severity Reaction Status Date / Time No Known Drug Allergies Allergy Verified 11/14/20 12:21 Review of Systems Review of Systems Narrative: 14 systems reviewed and negative aside from HPI Exam Vital Signs (past 8 hours): - 11/14/20 12:17 11/14/20 13:17 11/14/20 13:30 Temperature 97.6 F Pulse Rate 94 H 85 82 Respiratory Rate 18 18 17 Blood Pressure 153/85 H 154/77 H Pulse Oximetry 99 97 11/14/20 13:45 11/14/20 14:00 11/14/20 14:01 Temperature Pulse Rate 80 107 H 92 H Respiratory Rate 14 31 H 27 H Blood Pressure 114/67 Pulse Oximetry 11/14/20 14:15 11/14/20 14:30 11/14/20 14:45 Temperature Pulse Rate 82 79 85 Respiratory Rate 17 17 24 Blood Pressure 147/77 H Pulse Oximetry 11/14/20 15:30 11/14/20 15:31 11/14/20 15:45 Temperature Pulse Rate 77 84 80 Respiratory Rate Blood Pressure 150/76 H Pulse Oximetry 96 97 97 11/14/20 15:48 11/14/20 16:00 11/14/20 16:15 Temperature Pulse Rate 81 78 79 Respiratory Rate 18 23 16 Blood Pressure 138/71 130/75 Pulse Oximetry 98 97 98 11/14/20 16:45 11/14/20 17:00 Temperature Pulse Rate 83 85 Respiratory Rate 18 Blood Pressure 136/97 H Pulse Oximetry 97 Oxygen Delivery Method Room Air Narrative Exam Narrative: GEN: no acute distress HEENT: moist mucous membranes, eyes dilated after visit to ophthomalogist NECK: no JVD, trachea midline CV: regular rate and rhythm with no murmurs PULM: clear bilaterally ABD: soft, nontender, nondistended, no organomegaly, normal bowel sounds EXT: warm and well perfused with no edema SKIN: no rashes noted PSYCH: pleasant, cooperative NEURO: awake alert and oriented x3, cranial nerve 2-12 intact, rapid alternating movement intact, no pronator drift, visual field loss in left eye in superior medial aspect of visual field, normal upper and lower extremity strength Objective Labs Result Diagrams: 11/14/20 12:36 11/14/20 12:36 Labs: Laboratory Results - last 24 hr 11/14/20 11/14/20 11/14/20 12:36 12:36 12:36 WBC 9.1 RBC 4.69 Hgb 14.6 Hct 43.2 MCV 92.0 MCH 31.1 MCHC 33.8 RDW 13.5 Plt Count 295 Neut % (Auto) 68.3 Lymph % (Auto) 23.0 L Villalba % (Auto) 6.2 Eos % (Auto) 1.7 L Baso % (Auto) 0.8 Neut # (Auto) 6200 Lymph # (Auto) 2100 Villalba # (Auto) 600 Eos # (Auto) 200 Baso # (Auto) 100 ESR PT 11.9 INR 1.1 APTT 34 Sodium 138 Potassium 4.1 Chloride 106 Carbon Dioxide 24 BUN 18 Creatinine 0.75 Estimated GFR > 60.0 BUN/Creatinine Ratio 24.0 H Glucose 100 Calcium 9.7 Total Bilirubin 0.6 AST 31 ALT 23 Alkaline Phosphatase 69 Total Creatine Kinase 80 CK-MB (CK-2) TNP CK-MB (CK-2) Rel Index TNP Troponin I < 0.012 C-Reactive Protein Total Protein 7.4 Albumin 4.5 Globulin 2.9 Albumin/Globulin Ratio 1.6 U Opiates 300ng/mL cut Ur Oxycodone Screen Urine Methadone Screen Ur Barbiturates Screen U Tricyclic Antidepress Ur Phencyclidine Scrn Ur Amphetamines Screen U Methamphetamines Scrn Ur MDMA Scrn (Ecstasy) U Benzodiazepines Scrn Urine Cocaine Screen U Marijuana (THC) Screen SARS-CoV-2 (PCR) Blood Type Antibody Screen 11/14/20 11/14/20 11/14/20 12:36 12:36 12:36 WBC RBC Hgb Hct MCV MCH MCHC RDW Plt Count Neut % (Auto) Lymph % (Auto) Villalba % (Auto) Eos % (Auto) Baso % (Auto) Neut # (Auto) Lymph # (Auto) Villalba # (Auto) Eos # (Auto) Baso # (Auto) ESR 10 PT INR APTT Sodium Potassium Chloride Carbon Dioxide BUN Creatinine Estimated GFR BUN/Creatinine Ratio Glucose Calcium Total Bilirubin AST ALT Alkaline Phosphatase Total Creatine Kinase CK-MB (CK-2) CK-MB (CK-2) Rel Index Troponin I C-Reactive Protein 0.6 Total Protein Albumin Globulin Albumin/Globulin Ratio U Opiates 300ng/mL cut Ur Oxycodone Screen Urine Methadone Screen Ur Barbiturates Screen U Tricyclic Antidepress Ur Phencyclidine Scrn Ur Amphetamines Screen U Methamphetamines Scrn Ur MDMA Scrn (Ecstasy) U Benzodiazepines Scrn Urine Cocaine Screen U Marijuana (THC) Screen SARS-CoV-2 (PCR) Blood Type A Positive Antibody Screen Negative 11/14/20 11/14/20 13:05 13:30 WBC RBC Hgb Hct MCV MCH MCHC RDW Plt Count Neut % (Auto) Lymph % (Auto) Villalba % (Auto) Eos % (Auto) Baso % (Auto) Neut # (Auto) Lymph # (Auto) Villalba # (Auto) Eos # (Auto) Baso # (Auto) ESR PT INR APTT Sodium Potassium Chloride Carbon Dioxide BUN Creatinine Estimated GFR BUN/Creatinine Ratio Glucose Calcium Total Bilirubin AST ALT Alkaline Phosphatase Total Creatine Kinase CK-MB (CK-2) CK-MB (CK-2) Rel Index Troponin I C-Reactive Protein Total Protein Albumin Globulin Albumin/Globulin Ratio U Opiates 300ng/mL cut Negative Ur Oxycodone Screen Negative Urine Methadone Screen Negative Ur Barbiturates Screen Negative U Tricyclic Antidepress Negative Ur Phencyclidine Scrn Negative Ur Amphetamines Screen Negative U Methamphetamines Scrn Negative Ur MDMA Scrn (Ecstasy) Negative U Benzodiazepines Scrn Negative Urine Cocaine Screen Negative U Marijuana (THC) Screen Negative SARS-CoV-2 (PCR) Negative Blood Type Antibody Screen Assessment & Plan Assessment & Plan narrative: Mr. Glasgow is a 80M with PMH of HTN, HL who comes in with acute visual loss and transient left upper extremity weakness. 1. Acute left eye visual loss, consistent with retinal artery occlusion -patient arrived as a stroke workup -CT head with questionable findings, CTA of head/neck showing 40-46% bilateral carotid artery stenosis -telestroke neurology consulted and said no need for transfer, patient outside window as symptoms started over 48 hours ago -recommended dual antiplatelet therapy with aspirin and plavix -added high dose atoravastatin -ordered lipis, a1c, ESR, and CRP to stratify risk, and rule out GCA -ordered for PT/OT/speech therapy -NIH qshift -swallow screen prior to cardiac healthy diet 2. TIA, with transient left arm weakness -workup as above 3. Hypertension -continue home anti-hypertensives on discharge -for now permissive hypertension, and no blood pressure medication unless BP over 200 4. Hyperlipidemia -increased statin from low dose rosuvastatin, to high dose atorvastatin CODE: Full DVT ppx: lovenox SC DIET: Cardiac Proxy:Niocle Glasgow, Quality [facility] - Admit I confirm the patient?s Advance Care Plan is present, Code status is documented, Surrogate decision maker is in patient?s record [If Yes, STOP here]: Yes
[2020-11-14] MEDS: ATORVASTATIN 20 MG TABLET 80 MG PO (20:26)
[2020-11-14 22:54] LABS: Bacteria Urine None Seen; RBC Urine None Seen (0-5/HPF); WBC Urine None Seen (0-5/HPF)
[2020-11-14 23:12] LABS: Appearance Urine UA CLEAR; Bilirubin Urine UA NEGATIVE (NEGATIVE); Color Urine UA YELLOW; Glucose Urine UA NEGATIVE (Negative); Ketones Urine UA TRACE (NEGATIVE); Leukocyte Esterase Urine UA NEGATIVE (NEGATIVE); Nitrite Urine UA NEGATIVE (Negative); Occult Blood Urine UA NEGATIVE (Negative); Protein Urine UA NEGATIVE (Negative); Urobilinogen Urine UA 0.2 E.U./dL (0.2); pH Urine UA 5.5 (4.5-8.0)
[2020-11-14 23:49] LABS: Culture Indicated Urine Cult Not Indicated
--- NOTE | 2020-11-15 00:07 | PC.NURSE ---
2254 CLOTHING SORTER called this RN on run of vtach of approximately 9 beats, patient assessed by this RN and asymptomatic, BP 119/72. ZELDA Kenny updated, no new orders. 2353 second run of vtach, intermittent vtach for approximately 1min, per CLOTHING SORTER. Patient asymptomatic during this event and this RN at bedside assisting patient to bathroom during episode. ZELDA Kenny updated, new lab orders. Will continue to monitor.
[2020-11-15 00:21] VITALS: BP 133/75; PULSE 69; RESP 16; TEMP 36.3; O2SAT 96
[2020-11-15 00:40] LABS: Magnesium 2.1 mg/dL (1.6-2.3)
[2020-11-15 01:44] LABS: Hemoglobin A1C% w Est Avg Glu 5.8 % (4.0-6.0)
[2020-11-15 04:25] VITALS: BP 120/73; PULSE 73; RESP 16; TEMP 36.6; O2SAT 97
[2020-11-15 05:18] LABS: BUN Creatinine Ratio 22.1 (6-22); Blood Urea Nitrogen 17 mg/dL (9-20); Calcium 9.7 mg/dL (8.4-10.2); Carbon Dioxide 28 mmol/L (22-32); Chloride 105 mmol/L (98-107); Estimated Glomerular Filt Rate > 60.0 mL/min (>60); Glucose 100 mg/dL (80-110); HEMOLYSIS < 15 (0-50); Potassium 4.7 mmol/L (3.4-5.1); Sodium 137 mmol/L (137-145)
[2020-11-15 05:20] LABS: C-Reactive Protein Quant < 0.5 mg/dL (<1.0)
[2020-11-15 05:23] LABS: Cholesterol 113 mg/dL (140-199); HDL Cholesterol 32 mg/dL (40-60); LDL Cholesterol Calculated 63 mg/dL (<100); Triglycerides 88 mg/dL (35-150)
[2020-11-15 05:27] LABS: Add Manual Diff / Slide Review NO; Basophils Absolute Auto 100 /uL (0-100); Basophils Percent Auto 1.4 % (0-2); Eosinophils Absolute Auto 200 /uL (0-450); Eosinophils Percent Auto 2.7 % (2-4); Hematocrit 40.6 % (41-53); Hemoglobin 13.8 g/dL (13.5-17.5); Lymphocytes Absolute Auto 1900 /uL (1100-4500); Mean Corpuscular Hemoglobin 31.2 PG (26-34); Mean Corpuscular Volume 91.9 fL (80-100); Monocytes Absolute Auto 600 /uL (0-900); Monocytes Percent Auto 7.5 % (3-14); Neutrophils Absolute Auto 4800 /uL (1500-7000); Neutrophils Percent Auto 63.4 % (50-75); Platelet Count 289 X10^3/uL (150-400); Red Blood Cell Count 4.42 X10^6/uL (4.5-5.9); Red Cell Distribution Width 13.3 % (11.6-14.8); White Blood Cell Count 7.6 X10^3/uL (4.5-11.0)
[2020-11-15 05:52] LABS: Erythrocyte Sedimentation Rate 7 MM/HR (0-15)
[2020-11-15 06:45] VITALS: O2SAT 97
[2020-11-15 08:32] VITALS: BP 132/79; PULSE 77; RESP 16; TEMP 36.5; O2SAT 97
[2020-11-15] MEDS: CLOPIDOGREL 75 MG TABLET PO (09:10)
[2020-11-15] MEDS: ENOXAPARIN 40 MG/0.4 ML SYRINGE SUBCUT (09:10)
[2020-11-15] MEDS: ASPIRIN EC 81 MG TABLET PO (09:10)
--- NOTE | 2020-11-15 10:21 | SLP.IPNOTE ---
Order received. Introduced self to pt and his and reason for visit. Pt expressed no change is speech clarity nor language. Pt also indicated that he has been able to eat without difficulty. confirmed p't status. ST is not indicated at this time. Will d/c/ order
--- NOTE | 2020-11-15 11:54 | PC.NURSE ---
ICU reports occasional arrythmias-notified Dr. Nazario
--- NOTE | 2020-11-15 12:00 | OT.IP.EVAL ---
Past Medical History (Last Reviewed 11/14/20 @ 18:46 by Bud Nazario MD) High cholesterol Hypertension Occupational Therapy Inpatient Evaluation/Re-Eval M1 PT/OT-IP Prior Functional Status Start: 11/15/20 12:40 Freq: NEEDED Status: Active Protocol: Document 11/15/20 15:20 [facility] (Rec: 11/15/20 15:44 [facility] [id number]) Medical Review Prior Functional Status Medical History Reviewed Yes Communication able to make needs known Mobility and Gait pt stated that he is independent with all mobilities and ambulation without AD Activities of Daily Living and IADL's Pt states prior walked 6 miles and able to bike 20-30 miles with his . Pt states only thing that he did not do for himself was pays the bills because his usually does that. Social History Household Members spouse Living Arrangements House Number of Floors (Floors) Two Floors Number of Stairs To Enter/Railing? 2 steps without rails to enter 12 steps L rail to get to bedroom level Home Environment Tub/Shower Doors Home Equipment Hand Held Shower Additional Social History Comment pt is just visiting from [place]. will be going to his son's house upon d/c. house info is regarding son's house. M2 OT-IP Current Condition Start: 11/15/20 15:20 Freq: Status: Active Protocol: Document 11/15/20 15:20 [facility] (Rec: 11/15/20 15:44 [facility] [id number]) Occupational Therapy Current Condition Current Condition Evaluation Date 11/15/20 Treatment Diagnosis Left eye visual loss, tia vs CVA Diagnosis Onset Date 11/14/20 M3 OT- IP Subjective and Pain Start: 11/15/20 15:20 Freq: Status: Active Protocol: Document 11/15/20 15:20 [facility] (Rec: 11/15/20 15:44 [facility] [id number]) OT- Subjective Occupational Therapy Visit Type Type Initial Evaluation Visit Start Time 11:15 Visit Stop Time 12:00 Total Visit Minutes 45 Occupational Therapy Visit Comments Patient Comments Pt agreed to do OT eval, pt's present in the room. Patient/Caregiver Goals TO go back to [place] Friday . OT Pain Assessment Pain When Pain Assessed At Rest Pain Present Pain Present Denied Pain M4 OT- IP ADL's Start: 11/15/20 15:20 Freq: Status: Active Protocol: Document 11/15/20 15:20 [facility] (Rec: 11/15/20 15:44 [facility] [id number]) OT [id number] Comments OT Self-Feeding Comments Pt states has no issues. OT ADL-Grooming Comments OT Grooming Comments Per pt able to do on his own. OT ADL-Dressing General Eval Lower Body Dressing Ability Independent Comments OT Dressing Comments Pt able to jose g/doff socks and shoes while seated. OT ADL-Toileting Comments OT Toileting Comments Pt states did on his own. M5 OT- IP IADL's Start: 11/15/20 15:20 Freq: Status: Active Protocol: Document 11/15/20 15:20 [facility] (Rec: 11/15/20 15:44 [facility] [id number]) OT-Instrumental Activities of Daily Living Home Safety Awareness Awareness of Need for Assistance at Home Decreased Awareness Ability to Problem Solve Emergency Able to Problem Solve Situations Home Safety Comments Pt feels that he does not have any issues , but his states will provide supervision for needs. Medication Management Medication Management Comments Pt states at times prior forgets to take his medications in the morning and then just takes them at night . Pt's now aware to supervise the pt as needed. Money Management Money Management Comments Pt's does the bills prior . Meal Preparation Meal Preparation Comments Pt to provide supervision especially due to pt's decreased vision. Process Control Supervisor Process Control Supervisor Comments Pt to provide supervision especially due to pt's decreased vision. Driving Driving Concerns Identified Regarding Safety M6 OT- IP Functional Cognition Start: 11/15/20 15:20 Freq: Status: Active Protocol: Document 11/15/20 15:20 [facility] (Rec: 11/15/20 15:44 [facility] [id number]) Cognitive Factors Limiting Selfcare Function Cognitive Ability Level of Alertness Alert Patient Orientation Name,Age,Birthday,Month,Date, Year,Day of Week,Place, Situation Attention Span Ability Capable of Focused Attention, Capable of Sustained Attention Ability to Follow Commands Able to Follow One Step Commands Memory Description Short Term Impaired Safety Awareness Underestimates Need for Assistance Executive Function Ability Unable to Remember Details Cognitive Comments Cognitive Assessment Comments Pt scored 259 seconds on [place] making Part B and also needing MODA to help remember the directions which implies severe impairments for visual attention, task switching, speed of processing, mental flexibility , and executive functioning. It is strongly suggested that pt not drive at this time until cleared by his physician especially due to his visual deficits on the left. Pt having trouble figuring out 4 variable chart when looking up the percentile for his age group based on his time for 9 hole peg test. OT- Vision and Hearing OT- Hearing Assessment OT- Hearing Assessment WFL OT- Vision Assessment Visual Acuity Glasses All The Time Visual Attentiveness WFL Occular Pursuits WFL Visual Convergence WFL Visual [place] Impaired Vision Assessment Comments Decreased for left eye upper medial quadrant. M7 OT- IP Mobility and Balance Start: 11/15/20 15:20 Freq: Status: Active Protocol: Document 11/15/20 15:20 [facility] (Rec: 11/15/20 15:44 [facility] [id number]) OT-Transfer Assessment Sit to and From Stand Sit to and from Stand Independent Transfers Transfer Ability Independent Technique Transfer Destination Bed,Chair Transfer Technique Stand Step Pivot Devices Transfer Assistive Devices None Comments Mobility Comments Pt distant SBA in the room and transfer to and from the floor close SBA. OT- Balance Assessment Sitting Balance and Reactions Static Sitting Balance Ability Normal Dynamic Sitting Balance Ability Normal Standing Balance and Reactions Static Standing Balance Ability Good Dynamic Standing Balance Ability Good M8 OT- IP Objective Assessments Start: 11/15/20 15:20 Freq: Status: Active Protocol: Document 11/15/20 15:20 [facility] (Rec: 11/15/20 15:44 [facility] [id number]) OT Gross Range of Motion Upper Extremity Range of Motion Assessment Within Functional Limits OT Strength Upper Extremity Strength Assessment Within Functional Limits Hand [employer] Manager Strength Hand Dominance Right OT- Coordination Assessment Upper Extremity Finger to Nose Test Left UE Impaired Comments Coordination Comments Left index finger slightly off .5 cm from tip on his nose. R hand 9 hole peg at 85% for age and left hand 50% for age. Pt appears intact for coordination to sweet pickle maker items, but decreased for speed and fluidity of movement. OT-Muscle Tone Assessment Muscle Tone WNL Yes OT Sensation Assessment Comments Summary Comments Intact for light touch, but pt states feels a little off with his left hand. Pt slight increased time to figure out for left prioception and kinesthesia. M9 OT- IP Assessment and Plan Start: 11/15/20 15:20 Freq: Status: Active Protocol: Document 11/15/20 15:20 [facility] (Rec: 11/15/20 15:44 [facility] [id number]) OT Summary Assessment and Plan Potential Rehabilitation Potential Good Analytic Complexity at Evaluation Moderate Summary OT Impairments Balance,Coordination, Functional Cognition, Functional Mobility,Bathing Progress Towards Goals Progressing Toward Goals Assessment Summary Pt having acute left eye visual loss from retinal artery occlusion, now having some decreased executive problem solving, decreased vision on left side and and decreased speed with left hand . Pt has a supportive and aware to provide supervision for pt . At this time, pt and aware that best for pt not to drive. Goals Shower Transfer Goal Independent Days to Meet Goals 1 Frequency of Treatment Frequency Of Treatment Once a Day Treatment Plan Other Treatment Recommendations and Next Shower and redo [place] Making Treatment Focus Part B if pt still here. Discharge Recommendations OT Discharge Recommendations Home with Assistance Transportation Needs at Discharge Private Vehicle
--- NOTE | 2020-11-15 12:05 | PT.IIE ---
Medical History (Last Reviewed 11/14/20 @ 18:46 by Bud Nazario MD) High cholesterol Hypertension Physical Therapy Inpatient Evaluation/Re-Eval M1 PT/OT-IP Prior Functional Status Start: 11/15/20 12:40 Freq: NEEDED Status: Active Protocol: Document 11/15/20 12:05 [facility] (Rec: 11/15/20 12:59 [facility] [id number]) Medical Review Prior Functional Status Medical History Reviewed Yes Communication able to make needs known Mobility and Gait pt stated that he is independent with all mobilities and ambulation without AD Social History Household Members spouse Living Arrangements House Number of Floors (Floors) Two Floors Number of Stairs To Enter/Railing? 2 steps wtihout rails to enter 12 steps L rail to get to bedroom level Home Environment Tub/Shower Doors Home Equipment Hand Held Shower Additional Social History Comment pt is just visiting from [place]. will be going to his son's house upon d/c. house info is regarding son's house. M2 PT-IP Current Condition Start: 11/15/20 12:40 Freq: NEEDED Status: Active Protocol: Document 11/15/20 12:05 [facility] (Rec: 11/15/20 12:59 [facility] [id number]) Physical Therapy Current Condition Current Condition Evaluation Date 11/15/20 Treatment Diagnosis CVA; difficulty in walking Onset Date 11/14/20 M3 PT-IP Subjective Start: 11/15/20 12:40 Freq: NEEDED Status: Active Protocol: Document 11/15/20 12:05 [facility] (Rec: 11/15/20 12:59 [facility] [id number]) Subjective Physical Therapy Visit Type Type Initial Evaluation Visit Start Time 12:05 Visit Stop Time 12:25 Total Visit Minutes 20 Number of PURCH[employer]ING INTERNSH[employer] Visits 0 Physical Therapy Visit Comments Patient Comments pt is agreeable to do PT; spouse in room with pt. Therapy Pain Assessment Pain Present Pain Present Denied Pain M4 PT-IP Mobility and Gait Start: 11/15/20 12:40 Freq: NEEDED Status: Active Protocol: Document 11/15/20 12:05 [facility] (Rec: 11/15/20 12:59 [facility] [id number]) PT-Bed Mobility Assessment Supine to Sit Supine to Sit Independent Sit to Supine Sit to Supine Independent Scooting Scooting to Edge of Bed Independent Scooting Up and Down in Bed Independent PT-Transfer Assessment Sit to and From Stand Sit to and from Stand Independent Equipment Transfer Assistive Device None,Gait Belt Orthotic/Prosthetic Devices or Brace: No Transfers Transfer Destination Bed,Chair Transfer Technique ambulated without AD Transfer Ability Level of Assist Independent Comments Mobility Comments pt sitting on chair. spouse in room and agreeable to do PT . pt completed sit <> stand from chair x 5 reps without use of UE and completed <15 sec. pt ambulated towards the bed I. pt can be impulsive and cued to slow down for safety. completed bed mobility supine<>sit mod I. Tinetti balance: : low/negligible risk of falls pt agreed to ambulate in the hallway. completed ambulation without AD 250 ft SBA with gait deviation to the L but without LOB. completed up/down 3 stair without AD. able to complete SBA with ascending but unsteady with descent and educated on safety and use of rail for descending. completed up/down platform step without AD and cued pt to slow down and completed SBA. pt ambulated back to his room SBA and cues for safety. pt with c/o decrease L sided decrease vision and has ~ 2 incidences of nearly running into things in the hallway. pt tends to ambulate too fast as well and educated on safety and slowing down. pt understood. pt sat on chair. call light and table within reach. educated pt and spouse regarding safety and agreed. pt without any other concerns. Gait Assessment Gait Gait Assistance Required: Standby Assistance Distance (Feet) 250 Able to Maintain Weight Bearing Status Yes During Gait Assistive Devices Assistive Device None,Gait Belt Orthotic/Prosthetic Devices or Brace: No Gait Deviations General Gait Pattern Lateral Trunk Lean Factors Limiting Gait Function Factors Limiting Gait Function Decreased Strength,Poor Balance,Poor Safety Awareness Comments Gait Comments pls refer to mobility section for details Stair Climbing Assessment Devices Stair Climbing Assistive Devices None,Left Railing Technique/Endurance Stair Climbing Direction Ascend and Descend Stair Climbing Technique Step Over Step Number of Steps Climbed 3 Query Text: Stair Climbing Set # Repetitions (reps) 2 Comments Stair Climbing Comments up/down platform step without AD SBA and cues pls refer to mobility section for details PT-Balance Assessment Sitting Balance and Reactions Static Sitting Balance Ability Normal Dynamic Sitting Balance Ability Normal Standing Balance and Reactions Static Standing Balance Ability Good Dynamic Standing Balance Ability Good Device Used without AD Functional Assessments Functional Tests [place]etti Balance and Gait Assessment : negligible risk of falls M5 PT-IP Objective Assessments Start: 11/15/20 12:40 Freq: NEEDED Status: Active Protocol: Document 11/15/20 12:05 [facility] (Rec: 11/15/20 12:59 [facility] [id number]) Orientation Orientation/Cognition Level of Alertness Alert Orientation Name,Place,Situation Language Function Ability Hard of Hearing Safety Awareness Decreased Safety Awareness Memory Description No Deficits Noted Gross Range of Motion Lower Extremity ROM Assessment Within Functional Limits Strength Comments Strength Comments LLE: 4-/5 RKE 4+/5 Coordination Assessment Gross Coordination Gross Coordination WNL Sensation Assessment Sensation Gross Sensation WNL Muscle Tone Muscle Tone WNL Yes M6 PT-IP Treatment Start: 11/15/20 12:40 Freq: NEEDED Status: Active Protocol: Document 11/15/20 12:05 [facility] (Rec: 11/15/20 12:59 AB [id number]) Physical Therapy Treatment Education Education Provided Safety M7 PT-IP Assessment and Plan Start: 11/15/20 12:40 Freq: NEEDED Status: Active Protocol: Document 11/15/20 12:05 [facility] (Rec: 11/15/20 12:59 AB [id number]) PT Summary Assessment and Plan Potential Rehabilitation Potential Good Status of Condition at Evaluation Stable Summary Impairments Strength,Balance,Coordination, Gait Assessment Summary pt is modified independent with in room mobility. able to ambulate in the hallway without AD SBA for safety. pt with gait deviation to the L but without LOB. Pt continues to c/o L sided vision loss affecting safety during ambulation. pt plans to go home and spouse will be able to assist. pt may go home when medically stable. Goals Gait Goal Independent Gait Distance 300 Other Goals up/down 12 steps L rail ascending I up/down platform step x 2 mod I without AD Days to Meet Goals 3 Frequency of Treatment Frequency Of Treatment Once a Day Treatment Plan Physical Therapy Treatment Plan Bed Mobility Training,Transfer Training,Gait Training, Therapeutic Exercise,Balance Retraining,Post Op Education, Discharge Planning,Hot or Cold Pack,Neuromuscular Re-ed, Coordination Retraining,Manual Therapy Recommendations To Nursing Amount of Assist Needed Standby Assistance Discharge Recommendations PT Discharge Recommendations Home with Assistance Transportation Needs at Discharge Private Vehicle
[2020-11-15 12:44] VITALS: BP 131/78; PULSE 89; RESP 16; TEMP 36.1; O2SAT 98
[2020-11-15 13:50] LABS: Magnesium 2.3 mg/dL (1.6-2.3)
[2020-11-15 15:37] VITALS: BP 124/84; PULSE 80; RESP 18; TEMP 36.1; O2SAT 98
--- NOTE | 2020-11-15 16:18 | PC.NURSE ---
Patient discharged at 4:20pm in stable condition, present and both are aware that patient is not to drive until vision clears. Prescriptions sent with patient. Discharge orders discussed with patient.
--- NOTE | 2020-11-16 23:54 | PM.DS.1 ---
History of Present Illness History of Present Illness Chief complaint: stroke, sent by Eye dr Barragan: 80M with PMH HTN, HL who presents with left eye vision loss. He notes that he lost his vision in his left eye on the upper medial portion of his visual field. He had no further symptoms. He went to his opthalmologist where he was diagnosed with retinal artery occlusion. He was then sent to the hospital. While in the waiting room he noted left upper extremity weakness that lasted 10-15 minutes, but then resolved. He had not been able to lift his arm properly. He had no further symptoms. No other weakness, no loss of sensation. No speech or swallowing difficulty. In the ED, he was noted to have elevated blood pressure, but otherwise normal vital signs. Labs had essentially unremarkable CBC, chemistries, urine drug screen. He had a CT head which noted a small area of hypodensity in the right frontal lobe. CTA noted 40% left carotid stenosis, and 46% right carotid stenosis. He was noted to have a thyroid nodule. MRI showed no evidence of stroke, the area of question on the CT head was not visualized. He was given aspirin and admitted for further treatment. Discharge Providers Provider Date of admission: 11/14/20 14:17 Discharge Date: 11/15/20 Consults: 11/14/20 17:03 Consult to Discharge Planning Routine Comment: Consult to Occupational Therapy Evaluate & Treat Comment: Physician Instructions: Evaluate and treat Consult to Physical Therapy Evaluate & Treat Comment: Physician Instructions: Evaluate and Treat Consult to Speech Therapy Evaluate & Treat Comment: Physician Instructions: Evaluate and treat Discharge provider: Bud Nazario MD Summary Hospital Course Discharge Diagnosis: 1. Acute left eye visual loss with retinal artery occlusion 2. TIA, transient left arm weakness 3. Hypertension 4. Hyperlipidemia 5. ECHO with EF 50-55%, mild mitral regurgitation Hospital Course: Mr. Glasgow presented with visual loss which started two days prior to admission. He was outside the window for TPA or IR. He had been seen by ophthalmology who noted retinal artery occlusion. He had left arm weakness that resolved, MRI showed no stroke. ECHO showed EF 50-55% with mild mitral regurgitation. Presentation was discussed with telestroke who recommended dual anti-platelet therapy and he will continue with aspirin, and plavix, and high dose atorvastatin. He is from [place] and plans to go home soon to follow with his doctor. Exam Vital Signs (past 8 hours): Oxygen Delivery Method Room Air Oxygen Flow Rate 0 Narrative Exam Narrative: EN: no acute distress HEENT: moist mucous membranes NECK: no JVD, trachea midline CV: regular rate and rhythm with no murmurs PULM: clear bilaterally ABD: soft, nontender, nondistended, no organomegaly, normal bowel sounds EXT: warm and well perfused with no edema SKIN: no rashes noted PSYCH: pleasant, cooperative NEURO: awake alert and oriented x3, cranial nerve 2-12 intact, rapid alternating movement intact, no pronator drift, visual field loss in left eye in superior medial aspect of visual field, normal upper and lower extremity strength Objective Labs Result Diagrams: 11/15/20 04:25 11/15/20 04:25 [facility] Medical History High cholesterol Hypertension Family History Sister CVA (cerebral vascular accident) Social History household members: spouse Smoking Status: Never smoker alcohol intake: never Discharge Plan Discharge Plan Patient Disposition: Home Provider Discharge Comment: Mr. Glasgow came in with sudden vision loss. He was found to have a blockage by recycling collections driver who saw him before coming in. He also had left weakness that resolved. He did not have a stroke on the MRI, but did have blockage on eye exam. He will be treated as if he also had a TIA. He will be recommended to be on plavix, lipitor and aspirin daily. He should follow closely with his PCP. Discharge orders & Medications Prescriptions: New atorvastatin [Lipitor] 20 mg Tablet 80 mg PO BEDTIME Qty: 120 RF: 0 clopidogrel 75 mg Tablet 75 mg PO DAILY Qty: 30 RF: 0 aspirin 81 mg Tablet,Delayed Release (Dr/Ec) 81 mg PO DAILY Qty: 30 RF: 0 Continued amlodipine 10 mg Tablet 10 mg PO BEDTIME RF: 0 Discontinued rosuvastatin 10 mg Tablet 10 mg PO BEDTIME RF: 0 Medication counseling provided by Pharmacist: Yes Diet/Activity/Treatments Diet: Carb-consistent/Diabetic, Low-fat, Low-sodium and Low-cholesterol Visit Report/Discharge Packet Instructions: DI for Stroke-Ischemic, Atorvastatin, Clopidogrel, Aspirin Discharge Data Attending Provider: Bud Nazario
== END 2020-11-15 16:20 | disposition home or self-care (01) ==
LOC: ED 14:16 → AC 14:42
PROVIDERS: Nurse Practitioner Family; Admitting Provider Internal Medicine; Emergency Provider Emergency Medicine; Referring Provider Emergency Medicine; Visit Provider Internal Medicine
DX: H34.02 Transient retinal artery occlusion, left eye (principal); H54.62 Unqualified visual loss, left eye, normal vision right eye; R53.1 Weakness; I10 Essential (primary) hypertension; E78.00 Pure hypercholesterolemia, unspecified; I34.0 Nonrheumatic mitral (valve) insufficiency; E04.1 Nontoxic single thyroid nodule; Z20.822 Contact with and (suspected) exposure to COVID-19
CPT/HCPCS: 36415; 70450; 70496; 70498; 70548; 70553; 80048; 80053; 80061; 80305; 81001; 81003; 82550; 83036; 83735; 84484; 85025; 85610; 85651; 85730; 86140; 86850; 86900; 86901; 87635; 93005; 93306; 96360; 96361; 96372; 97161; 97166; 97530; 99285; C9803; G0378; A9579; J1650; Q9967